=== PATIENT | male | born 1985 | race Caucasian/White ===

== ENCOUNTER 2024-12-20 16:18 | Emergency (ER) | payer BC ==
[2024-12-20 16:51] VITALS: PULSE 73; RESP 20; TEMP 97
[2024-12-20] MEDS ORDERED: IOPAMIDOL 370 MG/ML 100 ML INFUS..BTL INJ ONE (17:34)
[2024-12-20] MEDS ORDERED: OMEPRAZOLE40 MG PO (18:48)
[2024-12-20] MEDS: FAMOTIDINE 20 MG/2 ML VIAL IV STA (18:57)
[2024-12-20 19:47] VITALS: BP 140/87; PULSE 73; RESP 18; TEMP 97.8; O2SAT 97
== END 2024-12-20 19:47 | disposition home or self-care (01) ==
LOC: FSED 16:52
DX: R10.13 Epigastric pain (principal); K27.9 Peptic ulcer, site unspecified, unspecified as acute or chronic, without hemorrhage or perforation; R11.2 Nausea with vomiting, unspecified; I10 Essential (primary) hypertension; F32.A Depression, unspecified
CPT/HCPCS: 74177; 80053; 80076; 85025; 99284; Q9967